=== PATIENT | female | born 2000 | race Caucasian/White ===

== ENCOUNTER 2024-11-20 14:17 | Outpatient (RCR) | payer BC, SELFPAY ==
[2024-11-20 15:15] LABS: Blood Urea Nitrogen 13 mg/dl (7-17); Calcium 10.1 mg/dl (8.4-10.2); Carbon Dioxide 26 mmol/L (22-30); Chloride 105 mmol/L (98-107); Glucose 89 mg/dl (70-99); Potassium 4.5 mmol/L (3.5-5.1); Sodium 140 mmol/L (135-145); eGFR > 60.00
== END 2024-12-16 23:59 | disposition home or self-care (01) ==
LOC: OID 14:17
PROVIDERS: ATTENDING PHYSICIAN Physician Assistant Surgical
DX: L70.0 Acne vulgaris (principal)
CPT/HCPCS: 36415; 80048

== ENCOUNTER → 2025-04-01 11:43 | Outpatient (REF) | payer BC, SELFPAY ==
[2025-04-01 13:22] LABS: Blood Urea Nitrogen 14 mg/dl (7-17); Calcium 10.2 mg/dl (8.4-10.2); Carbon Dioxide 25 mmol/L (22-30); Chloride 105 mmol/L (98-107); Glucose 93 mg/dl (70-99); Potassium 4.2 mmol/L (3.5-5.1); Sodium 137 mmol/L (135-145); eGFR > 60.00
== END ==
LOC: OIDL 11:43
PROVIDERS: ATTENDING PHYSICIAN Physician Assistant Surgical
DX: L70.0 Acne vulgaris (principal)
CPT/HCPCS: 36415; 80048